=== PATIENT | female | born 1930 | race Caucasian/White ===

== ENCOUNTER 2017-12-08 14:53 | Inpatient (IN) | payer MEDICARE, OTHER ==
[~2017-12-08] VITALS: Ht 157.5 cm; Wt 65.8 kg
[~2017-12-08 14:53] MED LIST: ACTONEL; ANASTROZOLE1 MG; ANASTROZOLE1 MG PO; AXERT12.5 MG PO; BUMEX2 MG PO; COUMADIN 5 MG TA5 M1 PO; COUMADIN PO; COUMADIN7.5 MG PO; CRESTOR10 MG; CRESTOR10 MG PO; DILT-XR180 MG PO; FLECAINIDE ACE100 MG PO; HYDROCODON-ACE1 EACH PO; HYDROCODONE-AP1 EAC6 PO; LISINOPRIL5 MG; LORTAB 5 MG/5001 TA1 PO; MOBIC7.5 MG PO; NEURONTIN 300300 M1 PO; NORCO 5-325 TA1 EACH PO; PROTONIX40 M2 PO; RIZATRIPTAN10 MG PO; TOPROL XL25 MG PO; WELLBUTRIN XL150 M1; WELLBUTRIN XL150 MG PO
[2017-12-08 15:01] VITALS: BP 138/84
[2017-12-08 15:29] LABS: URINE BLOOD NEGATIVE (Negative); URINE CLARITY CLEAR; URINE COLOR YELLOW; URINE GLUCOSE-RANDOM NEGATIVE (Negative); URINE KETONES 1+ (Negative); URINE LEUKOCYTES-REFLEX NEGATIVE (Negative); URINE NITRITE-REFLEX NEGATIVE (Negative); URINE PROTEIN NEGATIVE (Negative); URINE SPECIFIC GRAVITY >= 1.030 (1.005-1.030); URINE UROBILINOGEN 0.2 E.U./dl (0.2-1.0)
[2017-12-08 15:34] LABS: ICTOTEST (BILI CONFIRMATORY) Negative (Negative); URINE BILIRUBIN 1+ (Negative)
[2017-12-08 15:35] LABS: ABSOLUTE LYMPHOCYTES 0.9 thou/uL (0.8-5.3); ABSOLUTE MONOCYTES 0.6 thou/uL (0.0-1.2); ABSOLUTE NEUTROPHILS 1.8 thou/uL (1.6-8.1); BASOPHILS 0.6 %; EOSINOPHILS 0.1 %; HEMATOCRIT 45.8 % (37.0-47.0); HEMOGLOBIN 15.5 gm/dL (12.0-15.0); LYMPHOCYTES 27.6 %; MCV 88.2 fL (80.0-100.0); MONOCYTES 16.9 %; MPV 9.3 fl. (7.2-11.1); NUCLEATED RBCS 0 /100WBC; PLATELET COUNT* 173 thou/uL (150-400); POLYS 54.8 %; RBC 5.19 mil/uL (4.20-5.00); RDW-CV 13.4 % (10.5-14.5); WBC 3.4 thou/uL (4.0-11.0)
[2017-12-08 15:41] LABS: INR 3.1; PROTIME 30.1 Seconds (9.20-11.50)
[2017-12-08 15:46] LABS: CALCIUM 9.6 mg/dL (8.5-10.1); CREATININE 2.3 mg/dL (0.6-1.3); POTASSIUM 3.6 mmol/L (3.5-5.1)
[2017-12-08 15:50] LABS: ALBUMIN 3.8 g/dL (3.4-5.0); TOTAL BILIRUBIN 0.7 mg/dL (<0.1-1.0); TOTAL PROTEIN 7.9 g/dL (6.4-8.2)
--- NOTE | 2017-12-08 16:17 | NUR ---
SANDOR NOTIFIED UPON PT RETURN FROM CT. PT CONNECTED TO MONITOR
[2017-12-08 17:50] VITALS: BP 129/87
[2017-12-08 18:06] VITALS: BP 119/77
[2017-12-08] MEDS ORDERED: COUMADIN 2 MG TA2 M1 PO (18:08)
[2017-12-08 19:45] VITALS: BP 138/66
[2017-12-09 00:17] VITALS: BP 115/59
[2017-12-09 04:14] VITALS: BP 107/53
[2017-12-09 04:24] LABS: HEMATOCRIT 35.9 % (37.0-47.0); MCH 30.2 pg (26.0-34.0); MCHC 33.8 g/dL (28.0-37.0); MCV 89.4 fL (80.0-100.0); RBC 4.01 mil/uL (4.20-5.00); WBC 2.4 thou/uL (4.0-11.0)
--- NOTE | 2017-12-09 04:36 | NUR ---
PATIENT REMAINS ALERT AND ORIENTED THROUGHOUT SHIFT. VITAL SIGNS STABLE ON ROOM AIR. IV PATENT IN THE LEFT AC INFUSING AT 80 ML/HR. DENIES PAIN AND NAUSEA. ASSISTED STANDBY WITH WALKER AND GAITBELT TO THE RESTROOM. MAINTAINED NPO STATUS. REPOSITIONING SELF IN BED. HOURLY ROUNDING COMPLETE. NURSING WILL CONTINUE TO MONITOR.
[2017-12-09 04:40] LABS: ALBUMIN 2.7 g/dL (3.4-5.0); CALCIUM 8.1 mg/dL (8.5-10.1); CREATININE 1.8 mg/dL (0.6-1.3); MAGNESIUM 1.7 mg/dL (1.8-2.4); POTASSIUM 4.2 mmol/L (3.5-5.1); TOTAL BILIRUBIN 0.4 mg/dL (<0.1-1.0); TOTAL PROTEIN 5.7 g/dL (6.4-8.2)
[2017-12-09 04:51] LABS: HEMOGLOBIN 12.1 gm/dL (12.0-15.0)
[2017-12-09 04:53] LABS: INR 4.5; PROTIME 42.6 Seconds (9.20-11.50)
[2017-12-09 08:00] VITALS: BP 135/56
--- NOTE | 2017-12-09 15:05 | NUR ---
PT.HAD JUST GOTTEN BACK FROM WALKING TO BATHROOM WITH ASSIST OF DOUGH SCALER AND MIXER. GAIT STEADY. SHE SAID SHE LIVES ALONE. DAUGHTER LIVES IN THE SAME APT.COMPLEX AND CHECKS ON HER OFTEN. SHE IS NORMALLY INDEPENNDENT AT HOME. HAS HAD HOME HEALTH IN THE PAST. CANNOT REMEMBER THE NAME OF AGENCY. DOES NOT FEEL SHE WILL HAVE ANY DISCHARGE NEEDS. CM WILL FOLLOW.
[2017-12-09 15:43] VITALS: BP 126/54
--- NOTE | 2017-12-09 20:16 | NUR ---
I ASSUMED CARE OF THE PATIENT AT 0700. SHE IS ALERT AND ORIENTED X4 AND IS UP X1 WITH A WALKER AND A GAITBELT. HOURLY ROUNDING WAS COMPLETED AND PATIENT NEEDS ARE MET. PAIN IS DENIED. NEW IV WAS PLACED IN THE LEFT FOREARM. XRAY SHOWED IMPROVEMENT OF THE SMALL BOWEL OBSTRUCTION. BED IS IN THE LOW LOCKED POSITION AND CALL LIGHT IS IN REACH. FAMILY AT THE BEDSIDE MOST OF THE DAY. WILL CONTINUE TO MONITOR. PATIENT IS ALLOWED TO HAVE SIPS TONIGHT AND WILL POSSIBLY BE UPGRADED TO CLEAR LIQUIDS TOMORROW.
[2017-12-09 20:30] VITALS: BP 96/47
[2017-12-09 23:51] VITALS: BP 90/55
[2017-12-10 03:53] VITALS: BP 113/59
[2017-12-10 04:03] LABS: HEMATOCRIT 37.4 % (37.0-47.0); HEMOGLOBIN 12.9 gm/dL (12.0-15.0); MCH 30.3 pg (26.0-34.0); MCHC 34.5 g/dL (28.0-37.0); MCV 87.8 fL (80.0-100.0); RBC 4.26 mil/uL (4.20-5.00); WBC 2.3 thou/uL (4.0-11.0)
[2017-12-10 04:17] LABS: PROTIME 28.2 Seconds (9.20-11.50)
[2017-12-10 04:19] LABS: ALBUMIN 2.9 g/dL (3.4-5.0); CALCIUM 7.9 mg/dL (8.5-10.1); CREATININE 1.7 mg/dL (0.6-1.3); MAGNESIUM 1.5 mg/dL (1.8-2.4); POTASSIUM 3.5 mmol/L (3.5-5.1); TOTAL BILIRUBIN 0.5 mg/dL (<0.1-1.0); TOTAL PROTEIN 6.1 g/dL (6.4-8.2)
[2017-12-10 04:27] LABS: INR 2.9
--- NOTE | 2017-12-10 04:37 | NUR ---
PATIENT ALERT AND ORIENTED X4 THROUGHOUT SHIFT. VITAL SIGNS STABLE ON ROOM AIR. MEDICATIONS GIVEN ORDERED. ASSISTED STANDBY TO THE BATHROOM WITH A GAITBELT AND WALKER. DENIES PAIN AND OR NAUSEA. RESTLESS THROUGHOUT NIGHT. IV PATENT IN THE LEFT FOREARM INFUSING AT 80 ML/HR. WORKING WITH PT/OT ON DAY SHIFT. TOLERATING CLEAR LIQUID DIET. REPOSITIONING SELF IN BED. HOURLY ROUNDING COMPLETE. BED IN LOW POSITION, BED ALARM IN PLACE. CALL LIGHT WITHIN REACH. NURSING WILL CONTINUE TO MONITOR.
[2017-12-10 07:45] VITALS: BP 153/63
--- NOTE | 2017-12-10 16:27 | NUR ---
PT. SAYS THAT SHE COMPLETED ADLS ON HER OWN INDEPENDENTLY THIS MORNING. HER FAMILY MEMBER AND NURSING STAFF AGREE PT. IS INDEPENDENT WITH ADLS. THUS, PT. HAS MET HER GOALS FOR O.T. AND WILL BE DISCHARGED FROM O.T. SERVICES.
--- NOTE | 2017-12-10 17:04 | NUR ---
PT UP IN ROOM WITH SB ASSIST.PT TOLERATING FULL LIQUIDS WELL. PT DENIES PAIN. IVF INFUSING
[2017-12-10 17:11] VITALS: BP 143/67
[2017-12-10 20:50] VITALS: BP 113/68
[2017-12-11 04:13] LABS: HEMATOCRIT 42.1 % (37.0-47.0); HEMOGLOBIN 14.1 gm/dL (12.0-15.0); MCH 29.9 pg (26.0-34.0); MCHC 33.5 g/dL (28.0-37.0); MCV 89.1 fL (80.0-100.0); MPV 9.4 fl. (7.2-11.1); RBC 4.73 mil/uL (4.20-5.00); RDW-CV 13.1 % (10.5-14.5); WBC 5.2 thou/uL (4.0-11.0)
[2017-12-11 04:25] LABS: INR 1.7; PROTIME 16.9 Seconds (9.20-11.50)
[2017-12-11 04:34] LABS: CALCIUM 8.6 mg/dL (8.5-10.1); CREATININE 1.9 mg/dL (0.6-1.3); MAGNESIUM 1.4 mg/dL (1.8-2.4); PHOSPHORUS* 1.8 mg/dL (2.5-4.9); POTASSIUM 4.3 mmol/L (3.5-5.1)
--- NOTE | 2017-12-11 05:13 | NUR ---
PATIENT ALERT AND ORIENTED X 4. VITALS STABLE. RA. DULCOLAX SUPPOSITORY GIVEN AT HS PER ORDER. PATIENT REPORTS ONE FORMED BOWEL MOVEMENT AND MULTIPLE LOOSE STOOLS THROUGHT THE NIGHT. REPORTS MILD ABDOMINAL PAIN. DENIES NAUSEA. FLUIDS INFUSING PER ORDER. UP INDEPENDENTLY. HOURLY ROUNDS. NURSING WILL CONTINUE TO MONITOR.
[2017-12-11 08:00] VITALS: BP 107/67
--- NOTE | 2017-12-11 18:11 | NUR ---
PATIENT ALERT AND ORIENTED X 4. VITAL SIGNS STABLE ON ROOM AIR. PERRLA. UP AD ELIO IN ROOM AND AMBULATES IN HALLWAY. IV PATENT WITH FLUIDS INFUSING. DENIES PAIN AND NAUSEA. HOURLY ROUNDS MAINTAINED THROUGHOUT THE SHIFT. CALL LIGHT WITHIN REACH. NURSING WILL CONTINUE TO MONITOR.
[2017-12-11 20:20] VITALS: BP 131/62
[2017-12-12 04:36] LABS: INR 1.4; PROTIME 13.3 Seconds (9.20-11.50)
--- NOTE | 2017-12-12 06:20 | NUR ---
PATIENT HAS SLEPT WELL THROUGHOUT THE NIGHT WITHOUT ANY ISSUES. VSS ON RA. PATIENT IS UP AD-ELIO AND STEADY. NO C/O PAIN. NO C/O NAUSEA. IV IN LEFT FOREARM-SL. PATIENT INSTRUCTED TO USE CALL LIGHT WHEN NEEDING ASSISTANCE. HOURLY ROUNDS MADE. WILL CONTINUE WITH PLAN OF CARE AND NURSING TO MONITOR.
[2017-12-12 08:10] VITALS: BP 140/54; BP 96/55
--- NOTE | 2017-12-12 16:32 | NUR ---
PATIENT ALERT AND ORIENTED X 4. VITAL SIGNS STABLE ON ROOM AIR. AFEBRILE. PERRLA. UP AD ELIO IN ROOM AND AMBULATING IN HALLWAY. IV PATENT AND SALINE LOCKED. DENIES PAIN AND NAUSEA. REFUSES SCD'S. EDUCATED ON THE IMPORTANCE. HOURLY ROUNDS MAINTAINED THROUGHOUT THE SHIFT. CALL LIGHT WITHIN REACH. NURSING WILL CONTINUE TO MONITOR.
[2017-12-12 17:33] VITALS: BP 102/57
[2017-12-12 20:00] VITALS: BP 110/63
[2017-12-13 03:52] LABS: INR 1.2; PROTIME 11.5 Seconds (9.20-11.50)
--- NOTE | 2017-12-13 04:07 | NUR ---
PATIENT HAS SLEPT WELL THROUGHOUT THE NIGHT WITHOUT ANY ISSUES. NO C/O PAIN AND NO C/O NAUSEA. VSS ON RA. PATIENT UP AD-ELIO AND STEADY. PATIENT INSTRUCTED TO USE CALL LIGHT WHEN NEEDING ASSISTANCE. HOURLY ROUNDS MADE. WILL CONTINUE WITH PLAN OF CARE AND NURSING TO MONITOR.
[2017-12-13 08:30] VITALS: BP 107/74
[2017-12-13 09:00] VITALS: BP 107/74
[2017-12-13] MEDS ORDERED: MIRALAX17 GM PO (12:43)
[2017-12-13 12:44] VITALS: BP 107/74
[2017-12-13 14:04] VITALS: BP 107/74
--- NOTE | 2017-12-13 14:05 | NUR ---
ASSUMED CARES OF PT AT 0700. PT IN BED, BED IN LOW LOCKED POSITION, CALL BUTTON AND PERSONAL ITEMS IN PT REACH. PT A&O X4, HRRR PER AUSCULTATION, LCTAB. VSS ON RA, AFEBRILE, PERRLA, PLEASANT, TALKATIVE, DAUGHTER AT BEDSIDE. PULSES RADIAL AND PEDAL WNL. SKIN INTACT WITH SCATTERED BRUISING AND SCARS. PT UP INDEPENDENTLY TO BATHROOM/STEADY GAIT. LEFT FA IV PATENT TO FLUSH, SALINE LOCKED. PAIN RATED 5/10 IN BACK, PAIN MEDS SOMEWHAT EFFECTIVE. PT CLEARED FOR D/C. IV REMOVED, PT BELONGINGS PACKED AND TAKEN WITH DAUGHTER TO CAR. DISCHARGE, STROKE EDUCATION COMPLETED AND SIGNED. PT SIGNED MEDICARE RIGHTS. FOLLOW UP APPTS REVIEWED. ALL QUESTIONS ANSWERED. PT ESCORTED VIA W/C WITH NURSING STAFF TO DAUGHTER IN CAR. DISCHARGING HOME, PT STABLE AND TALKATIVE AT D/C. DISCHARGE COMPLETED AT 1400.
== END 2017-12-13 14:00 | disposition home or self-care (01) | DRG 388 ==
LOC: M.ERS 14:53 → M.TBA-ER 17:09 → M.ORTHSURG 17:09
PROVIDERS: Nurse Practitioner Psychiatric/Mental Health; Surgery; ADMIT Internal Medicine
DX: K56.600 Partial intestinal obstruction, unspecified as to cause (principal); E43 Unspecified severe protein-calorie malnutrition; N17.0 Acute kidney failure with tubular necrosis; N18.3 Chronic kidney disease, stage 3 (moderate); G43.909 Migraine, unspecified, not intractable, without status migrainosus; I48.2 Chronic atrial fibrillation; K59.00 Constipation, unspecified; Z96.653 Presence of artificial knee joint, bilateral; E78.5 Hyperlipidemia, unspecified; Z90.49 Acquired absence of other specified parts of digestive tract; Z90.11 Acquired absence of right breast and nipple; Z68.26 Body mass index [BMI] 26.0-26.9, adult; Z90.710 Acquired absence of both cervix and uterus; Z79.01 Long term (current) use of anticoagulants; Z79.899 Other long term (current) drug therapy; Z88.5 Allergy status to narcotic agent; Z88.0 Allergy status to penicillin; Z88.2 Allergy status to sulfonamides; Z88.8 Allergy status to other drugs, medicaments and biological substances

== ENCOUNTER → 2018-02-23 | Outpatient (CLI) | payer MEDICARE, OTHER ==
[~2018-02-23] MED LIST changes: +COUMADIN 2 MG TA2 M1 PO; +MIRALAX17 GM PO
== END ==
LOC: M.ULTRA 10:34
DX: N28.1 Cyst of kidney, acquired (principal); N17.9 Acute kidney failure, unspecified; E78.5 Hyperlipidemia, unspecified; Z96.651 Presence of right artificial knee joint; Z88.0 Allergy status to penicillin

== ENCOUNTER → 2018-05-05 | Outpatient (CLI) | payer MEDICARE, OTHER | LOC: M.RAD 12:53 | DX: M79.641 Pain in right hand (principal); M79.642 Pain in left hand; M25.842 Other specified joint disorders, left hand; M25.841 Other specified joint disorders, right hand; M15.1 Heberden's nodes (with arthropathy); M25.50 Pain in unspecified joint ==

== ENCOUNTER → 2018-07-01 | Outpatient (CLI) | payer MEDICARE, OTHER | LOC: M.RAD 14:38 | DX: S87.02XA Crushing injury of left knee, initial encounter (principal); M25.462 Effusion, left knee; Z96.652 Presence of left artificial knee joint; X58.XXXA Exposure to other specified factors, initial encounter; Y93.89 Activity, other specified; Y92.89 Other specified places as the place of occurrence of the external cause; Y99.8 Other external cause status ==

== ENCOUNTER 2018-10-02 11:03 | Emergency (ER) | payer MEDICARE, OTHER ==
[~2018-10-02] VITALS: Ht 157.5 cm; Wt 61.2 kg
[2018-10-02] MEDS ORDERED: IBUPROFEN 600600 M1 PO (12:10)
[2018-10-02 12:38] VITALS: BP 179/73
== END 2018-10-02 12:39 | disposition home or self-care (01) ==
LOC: M.ERS 11:03
DX: S52.591A Other fractures of lower end of right radius, initial encounter for closed fracture (principal); S52.614A Nondisplaced fracture of right ulna styloid process, initial encounter for closed fracture; E78.5 Hyperlipidemia, unspecified; Z90.710 Acquired absence of both cervix and uterus; Z85.89 Personal history of malignant neoplasm of other organs and systems; Z88.0 Allergy status to penicillin; Z88.2 Allergy status to sulfonamides; Z96.653 Presence of artificial knee joint, bilateral; Z88.5 Allergy status to narcotic agent; Z88.8 Allergy status to other drugs, medicaments and biological substances; W18.2XXA Fall in (into) shower or empty bathtub, initial encounter; Y93.E1 Activity, personal bathing and showering; Y92.091 Bathroom in other non-institutional residence as the place of occurrence of the external cause; Y99.8 Other external cause status